=== PATIENT | male | born 1980 | race Two or more races ===

== ENCOUNTER 2020-12-01 01:23 | Emergency (ER) | payer MEDICAID, OTHER ==
[~2020-12-01] VITALS: Ht 177.8 cm; Wt 82.6 kg
[2020-12-01 09:04] VITALS: BP 150/90
== END 2020-12-01 05:55 | disposition home or self-care (01) ==
LOC: ER 01:24
DX: S01.111A Laceration without foreign body of right eyelid and periocular area, initial encounter (principal); Y08.89XA Assault by other specified means, initial encounter; Y93.89 Activity, other specified; Y92.89 Other specified places as the place of occurrence of the external cause; Y99.8 Other external cause status
CPT/HCPCS: 12011